=== PATIENT | male | born 1955 | race African-American/Black ===

== ENCOUNTER 2018-08-06 10:01 | Day surgery (SDC) | payer OTHER ==
[2018-08-05 10:32] VITALS: BMI 32.9
--- NOTE | 2018-08-06 08:51 | HP ---
Satellite [facility] - Chief Complaint Chief Complaint: right shoulder pain - Past Medical History Allergies/Adverse Reactions: Allergies Allergy/AdvReac Type Severity Reaction Status Date / Time peanut Allergy Verified 08/05/18 10:35 shrimp Allergy Verified 08/05/18 10:35 - Current Medications Current Medications: Home Medications Medication Instructions Recorded Amlodipine Besylate [Norvasc -] 5 mg PO DAILY 08/05/18 Aspirin [Aspirin EC] 81 mg PO DAILY 08/05/18 Cholecalciferol (Vitamin D3) 1 tab PO DAILY 08/05/18 [Vitamin D -] Rosuvastatin Calcium [Crestor] 5 mg PO DAILY 08/05/18 Turmeric [Curcumin] 1 gm MC DAILY 08/05/18 Oxycodone HCl/Acetaminophen 1 - 2 tab PO Q6H #30 tab MDD 6 08/06/18 [Percocet 5-325 mg Tablet] Satellite Physical Exam - Physical Examination General Appearance: Well Nourished, Well Developed, Alert & Oriented x3 ENT: Clear Lung: Normal air movement Heart: Regular rate & rhythm Extremities: Other (right shoulder- + ttp, dec rom, + neer, + agosto, + empty can, nvi MRI + rct) Neurological: Intact, Alert, Oriented Satellite Impression/Plan - Impression/Plan Impression: right shoulder rct Operative Procedure: right shoulder arthroscopy with LAUREN OLGUIN Date to be Performed: 08/06/18
[2018-08-06] MEDS ORDERED: ROPIVACAINE HCL 0.5% 30ML VIAL ONE (10:56)
[2018-08-06] MEDS ORDERED: MIDAZOLAM HCL 2 MG/2 ML SINGLE DOSE VIAL ONE ×2 (10:57)
[2018-08-06] MEDS ORDERED: PROPOFOL 20 ML ONE ×2 (12:06→13:17)
[2018-08-06] MEDS ORDERED: ceFAZolin SODIUM 1 GM VIAL IVPB ONE (12:22)
[2018-08-06] MEDS ORDERED: ePHEDrine SULFATE 50 MG/1 ML AMPULE ONE (12:33)
--- NOTE | 2018-08-06 13:35 | OP ---
Operative Note - Note: Operative Date: 08/06/18 ([facility]) Pre-Operative Diagnosis: right shoulder rct Operation: right shoulder arthroscopy with RCR, SAD Implants: arthrex speedbridge, 2 swivelocks Post-Operative Diagnosis: Same as Pre-op Surgeon: Ashwin Keith Lurer: Amrit Martínez Anesthesiologist/ZIPPER SLIDE ATTACHER: Lloyd Looney Anesthesia: Local, MAC Specimens Removed: shavings Estimated Blood Loss (mls): 5 Operative Report Dictated: Yes
[2018-08-06] MEDS ORDERED: ONDANSETRON 4 MG/2 ML VIAL IVPUSH PRN (14:29)
[2018-08-06] MEDS ORDERED: LACTATED RINGERS SOLUTION 1,000 ML IV SCH (14:30)
[2018-08-06 16:27] VITALS: BP 112/64; PULSE 94; TEMP 97.6
--- NOTE | 2018-08-10 16:18 | PATH ---
Surgical Pathology Report Patient Name: JINNY TURCIOS Med. Rec. #: [id number] /Age/Gender: 1955 (Age: 62) / M Account: [id number] Location: [facility] SURGICAL Taken: 08/06/2018 Received: 08/09/2018 Reported: 08/10/2018 Physicians: Ashwin Keith M.D. Specimen(s) Received RIGHT SHOULDER SHAVINGS Clinical History Right shoulder tear Final Diagnosis SHOULDER SHAVINGS, RIGHT, ARTHROSCOPY, ROTATOR CUFF REPAIR: FRAGMENTS OF BENIGN CARTILAGE, DENSE FIBROCONNECTIVE TISSUE, ADIPOSE TISSUE, AND SKELETAL MUSCLE. Electronically Signed Stefanie Raza M.D. Gross Description Received in formalin, labeled "right shoulder shavings," is a 7.0 x 5.3 x 0.3 cm. aggregate of rizzo-yellow soft tissue fragments. A wireless sales representative portion is submitted in one cassette. /08/09/2018 saudi08/09/2018
--- NOTE | 2018-08-19 10:44 | OP ---
DATE OF OPERATION: 08/06/2018 PREOPERATIVE DIAGNOSIS: Right rotator cuff tear. POSTOPERATIVE DIAGNOSIS: Right rotator cuff tear. PROCEDURE: Arthroscopy right shoulder with subacromial decompression of right rotator cuff repair. SURGICAL ATTENDING: Ashwin Keith MD SEAM PRESS OPERATOR: ESTEPHANIE Dobson ANESTHESIA: Regional and general. CLOSURE: Arthrex SpeedBridge, as well as Adjuvant SwiveLock fixation, and 3-0 nylon for skin. ESTIMATED BLOOD LOSS: Negligible. DESCRIPTION OF OPERATIVE PROCEDURE: The patient taken to the operating room on August 06, 2018. Regional and general anesthesia was administered by the anesthesiologist. IV Kefzol was administered prophylactically prior to the case. The was placed in the beach chair position with all prominences well patted. The right shoulder area was prepped and draped in the usual sterile fashion. Posterior portal was made 2 fingerbreadths below the acromion using a 15 blade followed by a blunt trocar. Exam of the glenohumeral joint revealed the following: Intact glenoid and humeral head articular cartilage, intact labrum circumferentially, intact subscapularis to its insertion, biceps tendon was intact. Looking superiorly there was a large rotator cuff tear extending from the supraspinatus into infraspinatus as well. The fluid was drained from the shoulder, and the trocar was removed. The posterior trocar was redirected in the subacromial space. The accessory lateral and anterior portal were then made using 15 blade followed by blunt trocar. A bursectomy was then performed in the subacromial space exposing the rotator cuff tear. An acromioplasty was then performed burring the bone up to the appropriate level giving sufficient clearance of the humeral head. The coracoacromial ligament was identified, and the anterior acromion was further debrided. Looking inferiorly, the rotator cuff was cleaned off exposing a large rotator cuff tear. The greater tuberosity bed was cleaned with a shaver and then burred with a bur to stimulate some bleeding bone in this region. Two medial row anchors were then placed at the articular margin, 1 anterior and 1 posterior, with preloaded FiberTape suture. They were passed through the lateral portal and then fixated to the rotator cuff by use of a Scorpion passing device fanning out the 4 limbs from anterior all the way posteriorly. Using a crisscross formation, 2 lateral anchors were applied with 1 anterior and 1 posterior limb going to the posterior anchor and 1 anterior limb and 1 posterior onto the anterior anchor and fixating it more laterally matting down the rotator cuff to the greater tuberosity. Due to the size of the tear, there was room for additional fixation both anterior and posteriorly. These were fixated again suture tape horizontal mattress sutures through independent SwiveLocks 1 anteriorly and 1 posteriorly. Post fixation, all sutures were cut snug with the bone. Range of motion revealed excellent stability of the fracture and excellent clearance in the subacromial space. The shoulder was irrigated with copious amounts of irrigation. The portals were closed with 3-0 nylon. Sterile pressure dressing followed by a shoulder immobilizer was applied. The patient awakened from anesthesia and transferred to recovery in stable condition with no complication. Oniel GRESHAM/[id number]
== END 2018-08-06 16:15 | disposition home or self-care (01) ==
LOC: JASU-SURG 10:01
PROVIDERS: ATTEND Orthopaedic Surgery
PROC: 0RNJ4ZZ Release Right Shoulder Joint, Percutaneous Endoscopic Approach (ICD-10-PCS; principal; 2018-08-06 09:00)
PROC: 0LQ14ZZ Repair Right Shoulder Tendon, Percutaneous Endoscopic Approach (ICD-10-PCS; 2018-08-06 09:00)
DX: M75.101 Unspecified rotator cuff tear or rupture of right shoulder, not specified as traumatic (principal)
CPT/HCPCS: 88304-TC; 94760

== ENCOUNTER 2019-01-05 05:09 | Day surgery (SDC) | payer OTHER ==
[2018-12-30 15:49] VITALS: BMI 34.2
[2019-01-05] MEDS ORDERED: LIDOCAINE HCL 1%, 10 MG/ML (20ML VIAL) ONE (07:36)
--- NOTE | 2019-01-05 08:12 | HP ---
Satellite [facility] [place] - Chief Complaint Chief Complaint: right hand mass History of Present Illness: right hand mass History Source: Patient Limitations to Obtaining History: No Limitations - Past Medical History Allergies/Adverse Reactions: Allergies Allergy/AdvReac Type Severity Reaction Status Date / Time No Known Drug Allergies Allergy Verified 01/05/19 07:05 peanut Allergy "rash" Verified 01/05/19 07:05 shrimp Allergy "rash" Verified 01/05/19 07:05 - Current Medications Current Medications: Home Medications Medication Instructions Recorded Amlodipine Besylate [Norvasc -] 5 mg PO DAILY 08/05/18 Cholecalciferol (Vitamin D3) 1 tab PO DAILY 08/05/18 [Vitamin D -] Rosuvastatin Calcium [Crestor] 5 mg PO HS 08/05/18 Satellite Physical Exam - Physical Examination Vital Signs: Vital Signs Period Temp Pulse Resp BP Sys/Pepe Pulse Ox Last 24 Hr 97.6 F-97.6 F 53-53 20-20 144-144/90-90 95 General Appearance: Well Nourished ENT: Clear Lung: Clear to auscultation Heart: Regular rate & rhythm Breasts: Soft Abdomen: Soft Extremities: No edema Satellite Impression/Plan - Impression/Plan Impression: right hand mass Operative Procedure: right hand mass excision Date to be Performed: 01/05/19
[2019-01-05] MEDS ORDERED: MIDAZOLAM HCL 2 MG/2 ML SINGLE DOSE VIAL ONE (08:13)
[2019-01-05] MEDS ORDERED: ceFAZolin SODIUM 1 GM VIAL ONE (08:16)
[2019-01-05] MEDS ORDERED: ceFAZolin SODIUM 1 GM VIAL IVPB ONE (08:18)
[2019-01-05] MEDS ORDERED: LIDOCAINE HCL 1%, 10 MG/ML (50 mL VIAL) IJ ONE (08:27)
[2019-01-05] MEDS ORDERED: BUPIVACAINE HCL/PF 0.5% (5 MG/ML) 30 ML VIAL IJ ONE (08:27)
--- NOTE | 2019-01-05 08:50 | OP ---
Operative Note - Note: Operative Date: 01/05/19 Pre-Operative Diagnosis: right hand mass Operation: excision mass right hand Post-Operative Diagnosis: Same as Pre-op Surgeon: Ashwin Keith Bag Grader: Kemar Solo Anesthesiologist/RIVET CATCHER: Yusef Jordan Anesthesia: Local, MAC Specimens Removed: mass, right hand Estimated Blood Loss (mls): 0 Drains, Volume Out (mls): 0 Blood Volume Replaced (mls): 0 Fluid Volume Replaced (mls): 500 Operative Report Dictated: Yes
[2019-01-05 08:55] VITALS: TEMP 98.2
--- NOTE | 2019-01-05 09:09 | OP ---
DATE OF OPERATION: 01/05/2019 PREOPERATIVE DIAGNOSIS: Mass, right hand. POSTOPERATIVE DIAGNOSIS: Mass, right hand. PROCEDURE: Excision, mass, right hand. SURGEON: Ashwin Keith MD STACKER ATTENDANT: Nestor Neri MD ANESTHESIOLOGIST: Yusef Jordan DO ANESTHESIA: MAC, local injection of 12 mL 0.5% Marcaine, 1% lidocaine mixed. DRAINS: None. COMPLICATIONS: None. SPECIMEN: Mass, right hand. BLOOD LOSS: None. BLOOD GIVEN: None. FLUID REPLACEMENT: 500 mL Plasmalyte. INDICATION: The patient is 63-year-old male with a preoperative diagnosis of a mass growing on the dorsal aspect of the right thumb. After understanding the potential risks, complications, alternatives, and benefits of surgery versus nonsurgical treatment, the patient elected to undergo this procedure. DESCRIPTION OF PROCEDURE: The patient was brought to the operating room, peripheral IV placed and IV sedation given. IV Ancef 2 g was given. The entire case was done under 3.8 loupe magnification. An elliptical incision was marked out with the marking pen. The area was injected with 10 mL 0.5% Marcaine, 1% lidocaine mix. Right upper extremity was elevated, exsanguinated with an Esmarch bandage and tourniquet inflated to 250 mmHg. An elliptical incision was made with a number 15 scalpel blade. I was then able to dissect underneath this mass. It was superficial, did not violate the deeper structures, was well encapsulated. It looked like a large skin tag, but it was about 0.75 x 0.75 cm. It did not have any large neurovascular structures going to it. It was passed off the field. The area was copiously irrigated and washed out. I then dissected small skin flaps on the radial and ulnar aspect of the elliptical incision. There was no other abnormal tissue that I could see or feel, and therefore closure was done with 4-0 undyed Vicryl in the deep dermal layer. Final skin reapproximation was done with a running subcuticular 4-0 Biosyn stitch. The area was then washed and dried, covered with Steri-Strips, 4 x 4's, Webril, and Coban. Tourniquet was taken down after a total tourniquet time of 10 minutes. There were no complications during the case. The patient tolerated the procedure quite well and was brought to the ambulatory recovery room in stable condition. NESTOR NERI M.D. [id number]
[2019-01-05 09:35] VITALS: BP 131/78; PULSE 71
--- NOTE | 2019-01-12 12:27 | PATH ---
Surgical Pathology Report Patient Name: JINNY TURCIOS Med. Rec. #: [id number] /Age/Gender: 1955 (Age: 63) / M Account: [id number] Location: [facility] SURGICAL Taken: 01/05/2019 Received: 01/05/2019 Reported: 01/12/2019 Physicians: Ashwin Keith M.D. Specimen(s) Received RIGHT THUMB MASS Clinical History Right thumb mass excision Final Diagnosis RIGHT THUMB MASS, EXCISION: SEGMENT OF SKIN WITH NEUROFIBROMA. Comment: Immunohistochemistry stains show the tumor cells are positive for CD34, KATINA (weak) and S100, while negative for AE1/AE3, Desmin, and SMA. 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 Immunohistochemistry stains were performed at [place], [place] ([id number]) and interpreted at [facility] Positive and negative controls (internal if applicable) show appropriate results. Electronically Signed Christiana Sadler M.D. Gross Description Received in formalin, labeled "right thumb mass" it's a portion of polypoid skin measuring 1.0 x 0.9 x 0.7 cm. The skin surface is smooth. The resection margin is inked blue. The specimen is entirely submitted in one cassette after bisected. MIGDALIA/01/06/2019 last/01/06/2019
== END 2019-01-05 09:40 | disposition home or self-care (01) ==
LOC: JASU-SURG 05:09
PROVIDERS: ATTEND Orthopaedic Surgery
PROC: 0JBJ0ZX Excision of Right Hand Subcutaneous Tissue and Fascia, Open Approach, Diagnostic (ICD-10-PCS; principal; 2019-01-05 08:00)
DX: D36.12 Benign neoplasm of peripheral nerves and autonomic nervous system, upper limb, including shoulder (principal)
CPT/HCPCS: 88305-TC

== ENCOUNTER 2019-01-06 16:04 | Inpatient (IN) | payer OTHER ==
--- NOTE | 2019-01-06 16:13 | PDOC ---
Rapid Medical Evaluation Chief Complaint: Shortness of Breath Time Seen by Provider: 01/06/19 16:10 Medical Evaluation: Allergies Allergy/AdvReac Type Severity Reaction Status Date / Time No Known Drug Allergies Allergy Verified 01/05/19 07:05 peanut Allergy "rash" Verified 01/05/19 07:05 shrimp Allergy "rash" Verified 01/05/19 07:05 01/06/19 16:10 63 year old male c/o shortness of breath with activity x 1 week ago. send by PCP for evaluation. Pe: patient alert ox3. PMHX; hypertension, high cholesterol. A: dyspnea on exertion P: labs ekg chest xray patient to the ER for further management of care. Discharge Disposition - Diagnosis Dyspnea on exertion - Referrals - Patient Instructions - Post Discharge Activity
--- NOTE | 2019-01-06 16:24 | PDOC ---
History of Present Illness - General Chief Complaint: Shortness of Breath Stated Complaint: SENT BY PCP/SOB Time Seen by Provider: 01/06/19 16:10 Past History - Past Medical History Allergies/Adverse Reactions: Allergies Allergy/AdvReac Type Severity Reaction Status Date / Time No Known Drug Allergies Allergy Verified 01/06/19 16:12 peanut Allergy "rash" Verified 01/06/19 16:12 shrimp Allergy "rash" Verified 01/06/19 16:12 Home Medications: Ambulatory Orders Amlodipine Besylate [Norvasc -] 5 mg PO DAILY 08/05/18 Rosuvastatin Calcium [Crestor] 5 mg PO HS 08/05/18 Aspirin [Children's Aspirin] 81 mg PO DAILY 01/06/19 Ketoconazole 2% Cream [Nizoral 2% Cream -] 1 applic TP DAILY 01/06/19 Losartan Potassium [Cozaar -] 50 mg PO DAILY 01/06/19 Cancer: Yes (prostate) COPD: No HTN: Yes Hypercholesterolemia: Yes - Surgical History Orthopedic Surgery: Yes (right shoulder) - Immunization History Immunization Up to Date: Yes - Suicide/Smoking/Psychosocial Hx Smoking History: Never smoked Have you smoked in the past 12 months: No If you are a former smoker, when did you quit?: 2011 Information on smoking cessation initiated: No Hx Alcohol Use: No Drug/Substance Use Hx: No *Physical Exam - Vital Signs Last Vital Signs Temp Pulse Resp BP Pulse Ox 98.1 F 69 17 145/94 95 01/06/19 16:12 01/06/19 16:12 01/06/19 16:12 01/06/19 16:12 01/06/19 16:12 ED Treatment Course - LABORATORY CBC & Chemistry Diagram: 01/06/19 16:24 01/06/19 16:24 Medical Decision Making - Medical Decision Making 63yo M with PMH of HTN, HLD, prostate CA (surgery in 2012 and radiation in 2014 ) sent by his primary care team for evaluation of abnormal EKG and exertional shorthess of breath. Per primary team, patient with EKG changes today: new PACs and twi inversion on lead III. Patient states he is an active person and it is unusual that he will become short of breath upon walking through a parking lot and up some stairs. Denies history of asthma. Primary team states he has PFTs consistent with an early stage of COPD. Patient reports intermittent smoking. Denies chest pain. Does not have a mate chief but had a stress test about three or four months ago which was "fine." Denies hemoptysis, no recent surgical history, no recent immobilization, no hormone use, no history of DVT or PE. No fevers, chills, or abdominal pain. PCP: Dr. Carrington ROS: Constitutional: no fever, no chills HEENT: no throat pain, no dysphagia Cardiovascular: no chest pain, no palpitations Respiratory: no cough, +shortness of breath Gastrointestinal: no abdominal pain, no nausea Genitourinary: no dysuria, no hematuria Musculoskeletal: no myalgia, no arthralgia Skin: no rash, no itching Neurologic: no headache, no weakness PE: General: Awake, alert, and fully oriented, in no acute distress Head: No signs of trauma Eyes: EOMI, sclera anicteric ENT: Moist mucus membranes Neck: Normal ROM, supple Lungs: Lungs clear, Normal breath sounds Cardio: Regular rhythm, S1 and S2 present Abdomen: Soft, nontender. No guarding, no rebound, no masses Extremities: Normal range of motion, Distal pulses present, No BLE edema, No calf tenderness SKIN: Warm, Dry, normal turgor Neurologic: Cranial nerves II through XII grossly intact. Normal speech ED Courses/MDM: DDX including but not limited to ACS, PE, PNA, anemia, metabolic derangement Labs, EKG, CXR EKG: rate 79, QTc 474, twi from lead III not present, but new twi seen on anterior leads 01/06/19 16:24 CBC WBC 4.9 K/mm3 (4.0-10.0) 01/06/19 16:24 RBC 5.08 M/mm3 (4.00-5.60) 01/06/19 16:24 Hgb 16.0 GM/dL (11.7-16.9) 01/06/19 16:24 Hct 48.7 % (35.4-49) 01/06/19 16:24 MCV 95.9 fl (80-96) 01/06/19 16:24 MCH 31.6 pg (25.7-33.7) 01/06/19 16:24 MCHC 32.9 g/dl (32.0-35.9) 01/06/19 16:24 RDW 13.0 % (11.9-15.9) 01/06/19 16:24 Plt Count 184 K/MM3 (134-434) 01/06/19 16:24 MPV 9.1 fl (7.5-11.1) 01/06/19 16:24 Absolute Neuts (auto) 3.2 K/mm3 (1.5-8.0) 01/06/19 16:24 Neutrophils % 65.5 % (42.8-82.8) D 01/06/19 16:24 Lymphocytes % 22.2 % (8-40) D 01/06/19 16:24 Monocytes % 9.4 % (3.8-10.2) 01/06/19 16:24 Eosinophils % 1.8 % (0-4.5) 01/06/19 16:24 Basophils % 1.1 % (0-2.0) 01/06/19 16:24 Nucleated RBC % 0 % (0-0) 01/06/19 16:24 No leukocytosis CMP Sodium 142 mmol/L (136-145) 01/06/19 16:24 Potassium 4.0 mmol/L (3.5-5.1) 01/06/19 16:24 Chloride 110 mmol/L (98-107) H 01/06/19 16:24 Carbon Dioxide 26 mmol/L (21-32) 01/06/19 16:24 Anion Gap 6 MMOL/L (8-16) L 01/06/19 16:24 BUN 15.3 mg/dL (7-18) 01/06/19 16:24 Creatinine 1.1 mg/dL (0.55-1.3) 01/06/19 16:24 Est GFR (CKD-EPI)AfAm 81.22 01/06/19 16:24 Est GFR (CKD-EPI)NonAf 70.07 01/06/19 16:24 Random Glucose 87 mg/dL (74-106) 01/06/19 16:24 Calcium 9.1 mg/dL (8.5-10.1) 01/06/19 16:24 Magnesium 2.3 mg/dL (1.8-2.4) 01/06/19 16:24 Total Bilirubin 0.5 mg/dL (0.2-1) 01/06/19 16:24 AST 20 U/L (15-37) 01/06/19 16:24 ALT 26 U/L (13-61) 01/06/19 16:24 Alkaline Phosphatase 102 U/L (45-117) 01/06/19 16:24 Creatine Kinase 114 U/L (26-308) 01/06/19 16:24 Troponin I 0.02 ng/ml (0.00-0.05) 01/06/19 16:24 B-Natriuretic Peptide 71.4 pg/ml (5-125) 01/06/19 16:24 Total Protein 7.5 g/dl (6.4-8.2) 01/06/19 16:24 Albumin 3.6 g/dl (3.4-5.0) 01/06/19 16:24 Electrolytes unremarkable Tpn undetectable Normal BNP ASA ordered Trial of albuterol CXR without acute pathology, per radiology report: "2 views of the chest reveal clear lungs, normal, normal drake and some unfolding of the aorta. Angles are sharp angles. Soft tissues are intact. There is evidence of previous right shoulder surgery. Impression: No acute chest pathology. " Recommended admission, however patient declined. He is of sound mind and able to verbalize benefits and risks of admission. He wants to be discharged home after second troponin in order to attend a celebration of his jail at work tomorrow. 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 George and night team. 01/06/19 19:09 *DC/Admit/Observation/Transfer Diagnosis at time of Disposition: Dyspnea on exertion - Discharge Dispostion Condition at time of disposition: Stable Decision to Admit order: Yes - Referrals - Patient Instructions - Post Discharge Activity
[2019-01-06 16:36] LABS: BASO % 1.1 % (0-2.0); EOS % 1.8 % (0-4.5); HEMATOCRIT 48.7 % (35.4-49); LYMPH % 22.2 % (8-40); MCH 31.6 pg (25.7-33.7); MCHC 32.9 g/dl (32.0-35.9); MEAN CELL VOLUME 95.9 fl (80-96); MEAN PLT VOLUME 9.1 fl (7.5-11.1); MONO % 9.4 % (3.8-10.2); NEUT % 65.5 % (42.8-82.8); PLATELET COUNT 184 K/MM3 (134-434); RBC 5.08 M/mm3 (4.00-5.60); WHITE BLOOD COUNT 4.9 K/mm3 (4.0-10.0)
[2019-01-06 16:57] LABS: INR 0.98 (0.83-1.09); PROTHROMBIN TIME (PATIENT) 11.6 SEC (9.7-13.0)
[2019-01-06 17:13] LABS: ALBUMIN 3.6 g/dl (3.4-5.0); BILIRUBIN,TOTAL 0.5 mg/dL (0.2-1); BLOOD UREA NITROGEN 15.3 mg/dL (7-18); CALCIUM 9.1 mg/dL (8.5-10.1); CREATININE 1.1 mg/dL (0.55-1.3); MAGNESIUM 2.3 mg/dL (1.8-2.4); TOT PROT 7.5 g/dl (6.4-8.2)
[2019-01-06 17:46] LABS: N-TERMINAL BNP 71.4 pg/ml (5-125)
[2019-01-06] MEDS ORDERED: ASPIRIN 325 MG TABLET PO ONE (18:18)
--- NOTE | 2019-01-06 18:18 | PDOC ---
Documentation entered by Fartun Bermudez SCRIBE, acting as scribe for Tianna Betancur DO. Tianna Betancur DO: This documentation has been prepared by the Aidan richey Brenda, SCRIBE, under my direction and personally reviewed by me in its entirety. I confirm that the documentation accurately reflects all work, treatment, procedures, and medical decision making performed by me. Attending Attestation - Resident Resident Name: Lis Sesay (\) - ED Attending Attestation I have performed the following: I have examined & evaluated the patient, The case was reviewed & discussed with the resident, I agree w/resident's findings & plan, Exceptions are as noted - HPI HPI: 01/06/19 19:40 The patient is a year old female, with a significant PMH of HTN, HLD, prostate CA (surgery in 2012 and radiation in 2014) who presents to the emergency department, sent in by his PCP for evaluation of an irregular EKG and shortness of breath upon exertion. As per patient, he is regularly an active person, and he would not normally be short of breath upon exertion, such as walking up the steps. Patient notes having a stress test done recently, and it was normal. The patient denies chest pain, headache and dizziness.Denies fever, chills, nausea, vomiting, diarrhea and constipation. Denies dysuria, frequency, urgency and hematuria. Allergies: NKA Past surgical history: ganglion cyst removed, surgery for prostate cancer Social history: IOccasional and social tobacco use. States he has 1 cigarette every couple of months. PCP: Zeb Singh rn wound care - Physicial Exam PE: 01/06/19 19:40 GENERAL: Awake, alert, and fully oriented, in no acute distress HEAD: No signs of trauma EYES: sclera anicteric, conjunctiva clear NECK: Normal ROM, supple, no lymphadenopathy, JVD, or masses LUNGS: Breath sounds equal, clear to auscultation bilaterally. No wheezes, and no crackles HEART: Regular rate and rhythm, normal S1 and S2, no murmurs, rubs or gallops ABDOMEN: Soft, nontender, normoactive bowel sounds. No guarding, no rebound. No masses EXTREMITIES: Normal range of motion, no edema. No clubbing or cyanosis. No cords, erythema, or tenderness NEUROLOGICAL: Cranial nerves II through XII grossly intact. Normal speech. SKIN: Warm, Dry, normal turgor, no rashes or lesions noted. - Medical Decision Making 01/06/19 18:15 I, Dr. Tianna Betancur, DO, attest that this document has been prepared under my direction and personally reviewed by me in its entirety. I further attest, that it accurately reflects all work, treatment, procedures and medical decision -making performed by me. a/p: 63yo male with hx of htn, hld, and early dx of copd with a smoking hx with increasing sob x 1 week -denies cp -no cough -no f/c -no palpitations -no abd pain, no n/v/d -no pleuritic component -seen by Jeferson Davey today - repeat pft repeated, ekg - ekg showed a t wave inversion inferiorly which is new and t wave inversions septally which are new from prior - sent in for further eval -pt states sob when walking up stairs and exerting himself -no leg swelling, no calf cramping -no PE risk factors -concern for acs vs copd as cause of sob -will send labs, ekg, cxr, asa 01/06/19 18:17 concern for ekg changes trop neg bnp neg will repeat trop pt retiring tomorrow from [facility] - states his alf green party is tomorrow morning will continue to monitor call placed to Jeferson Davey to update her 01/06/19 19:18 pt willing to stay for further eval feels better after neb 01/06/19 19:52 cxr clear resident discussed the case with symphony covering dr. charles who accepts pt to service Heart Score/ECG Review - ECG Intrepretation Comment:: 01/06/19 18:19 sinus at 79, nl axis, nl interval, no acute st changes, t wave inversions septally
[2019-01-06] MEDS ORDERED: ALBUTEROL SO4 0.083% IH SOL 2.5 MG/3 ML VIAL.NEB. NEB ONE ×2 (18:21→18:24)
[2019-01-06] MEDS ORDERED: ASPIRIN 81 MG CHEWABLE TABLETS ONE (18:24)
--- NOTE | 2019-01-06 19:28 | PDOC ---
*Physical Exam - Vital Signs Last Vital Signs Temp Pulse Resp BP Pulse Ox 98.1 F 69 17 145/94 95 01/06/19 16:12 01/06/19 16:12 01/06/19 16:12 01/06/19 16:12 01/06/19 16:12 ED Treatment Course - LABORATORY CBC & Chemistry Diagram: 01/06/19 16:24 01/06/19 16:24 - ADDITIONAL ORDERS Additional order review: Laboratory Results 01/06/19 01/06/19 16:24 16:24 PT with INR 11.60 INR 0.98 Sodium 142 Potassium 4.0 Chloride 110 H Carbon Dioxide 26 Anion Gap 6 L BUN 15.3 Creatinine 1.1 Est GFR (CKD-EPI)AfAm 81.22 Est GFR (CKD-EPI)NonAf 70.07 Random Glucose 87 Calcium 9.1 Magnesium 2.3 Total Bilirubin 0.5 AST 20 ALT 26 Alkaline Phosphatase 102 Creatine Kinase 114 Troponin I 0.02 B-Natriuretic Peptide 71.4 Total Protein 7.5 Albumin 3.6 01/06/19 16:24 RBC 5.08 MCV 95.9 MCHC 32.9 RDW 13.0 MPV 9.1 Neutrophils % 65.5 D Lymphocytes % 22.2 D Monocytes % 9.4 Eosinophils % 1.8 Basophils % 1.1 - Medications Given in the ED: ED Medications Discontinued Medications Generic Name Dose Route Start Last Admin Trade Name Freq PRN Reason Stop Dose Admin Albuterol Sulfate 1 amp 01/06/19 18:21 01/06/19 18:28 Ventolin 0.083% Nebulizer Soln - NEB 01/06/19 18:22 1 amp ONCE ONE Administration Aspirin 325 mg 01/06/19 18:18 01/06/19 18:28 Asa - PO 01/06/19 18:19 325 mg ONCE ONE Administration Medical Decision Making - Medical Decision Making Pt was signed out to me by resident Dr. Sesay, who explained the presentation, ED course, any pending results, and needed interventions. Pending results include admission. Pt is currently stable and is lying comfortably. Trop negative, chest x-ray with no acute pathology. Plan to admit for tele obs. Pending call back from admitting team. 01/06/19 19:24 Pt admitted to hospitalist team (Dr. Mack), covering for Dr. Carrington. 01/06/19 19:55 *DC/Admit/Observation/Transfer Diagnosis at time of Disposition: Dyspnea on exertion - Discharge Dispostion Condition at time of disposition: Stable Decision to Admit order: Yes - Referrals Referrals: Jamshid Strauss MD [Staff Physician] - Yves Carrington MD [Primary Care Provider] - - Patient Instructions - Post Discharge Activity
--- NOTE | 2019-01-06 20:14 | PN ---
Teaching Attending Note Name of Resident: Payton Horan ATTENDING PHYSICIAN STATEMENT I saw and evaluated the patient. I reviewed the resident's note and discussed the case with the resident. I agree with the resident's findings and plan as documented. SUBJECTIVE: Patient is 63 year old man with PMH of HTN, HLD, prostate CA (surgery in 2013 and radiation in 2015), Recent shoulder surgery, Tobacco use and Recent right hand cyst removal sent by his primary care team for evaluation of abnormal EKG and exertional shorthess of breath. Per primary team, patient with EKG changes today: new PACs and T wave inversion in lead III. Patient states he is an active person and it is unusual that he will become short of breath upon walking through a parking lot and up some stairs. He recently stopped taking daily Aspirin after he had shoulder surgery. Denies history of asthma. Primary team states he has PFTs consistent with early stage of COPD (Mild restrictive lung disease). Patient reports intermittent smoking. Denies chest pain. Does not have a barrel cleaner but had a stress test about three or four months ago which was "fine." Denies hemoptysis, no recent immobilization, no hormone use, no history of DVT or PE. No fevers, chills, or abdominal pain. OBJECTIVE: Alert Vital Signs Period Temp Pulse Resp BP Sys/Pepe Pulse Ox Last 24 Hr 98.1 F 69-82 17-20 145-145/83-94 95-96 HEENT: No Jaundice, eye redness or discharge, PERRLA, EOMI. Normocephalic, atraumatic. External ears are normal and hearing is grossly intact. No nasal discharge. Neck: Supple, nontender. No palpable adenopathy or thyromegaly. No JVD Chest: Good effort. Clear to auscultation and percussion. Heart: Regular. No S3, rub or murmur Abdomen: Not distended, soft, nontender and no HSM. No rebound or guarding. Normal bowel sounds. Ext: Peripheral pulses intact. No leg edema. Skin: Warm and dry. No petechiae, rash or ecchymosis. Neuro: Alert. Oriented x3. CN 2-12 grossly intact. Sensation grossly intact in all four extremities and DTR are symmetric. Psych: Appropriate mood and affect. Good insight. Current Medications Generic Name Dose Route Start Last Admin Trade Name Freq PRN Reason Stop Dose Admin Amlodipine Besylate 5 mg 01/07/19 10:00 Norvasc - PO DAILY [facility] Aspirin 81 mg 01/07/19 10:00 Asa - PO DAILY [facility] Enoxaparin Sodium 40 mg 01/07/19 10:00 Lovenox - SQ DAILY [facility] Losartan Potassium 50 mg 01/07/19 10:00 Cozaar - PO DAILY [facility] Rosuvastatin Calcium 5 mg 01/06/19 22:00 Crestor - PO HS [facility] Home Medications Medication Instructions Recorded Amlodipine Besylate [Norvasc -] 5 mg PO DAILY 08/05/18 Rosuvastatin Calcium [Crestor] 5 mg PO HS 08/05/18 Aspirin [Children's Aspirin] 81 mg PO DAILY 01/06/19 Ketoconazole 2% Cream [Nizoral 2% 1 applic TP DAILY 01/06/19 Cream -] Losartan Potassium [Cozaar -] 50 mg PO DAILY 01/06/19 Abnormal Lab Results 01/06/19 16:24 Chloride 110 H Anion Gap 6 L ASSESSMENT AND PLAN: 1. New onset COPD - Presentation consistent with COPD. [place] better after bronchodilator. Repeat EKG shows NSR with new T wave inversion in V1 and V2, but no longer inverted in Lead III. Initial troponin is negative. No acute abnormality on CXR. Will admit to telemetry to rule out ACS, get ECHO, fasting lipids, TSH and consult cardiology. Will get CTA chest to rule out PE. Continue Duoneb PRN and consult Pulmonary. 2. Tobacco Use Counseled on risks associated with tobacco use. We will provide patient all the necessary assistance to facilitate smoking cessation and prescribe Nicotine patch. 3. Obesity Counseled on the risks associated with obesity. Will provide patient all the necessary assistance, counseling and positive reinforcement to facilitate weight loss. Consult wreath maker. 4. Hypertension - Restart suitable outpatient antihypertensive drugs when clinically appropriate. Revise regimen to ensure [id number] excellent BP control and day camp counselor patient on the injurious effects of uncontrolled hypertension. Nonpharmacologic measures to control hypertension like weight loss , salt restriction and exercise discussed. Importance of adherence to treatment regimen and attainment of normotension emphasized. 5. DVT prophylaxis - Lovenox 40 mg SQ q 24 hours. 6. Advance directives - Full code
--- NOTE | 2019-01-06 21:12 | HP ---
CHIEF COMPLAINT:SOB on exertion PCP:Dr. Carrington HISTORY OF PRESENT ILLNESS: Patient is a 63 year old male with past medical history of HTN, HLD, and prostate CA, presented to the ED from his PCP's office today after an EKG finding of TWI III and worsening SOB on exertion for about 1 week. Patient reported he started noticing gradual onset of shortness of breath when walking up the stairs. He notes walking up 1 flight makes him dyspneic. This morning, due to persistence of dyspnea on exertion, patient went to his PCP's office. An EKG was done which TWI on III which was not seen on previous EKGs. Of note, patient reported that he used to have an active lifestyle, and exercises regularly with a bicycle. But since he had a shoulder surgery in September, he has not been as active. Patient also had a cyst excision of the right hand yesterday , for which he has not been taking his aspirin. Patient denies any fever, chills , headache, dizziness, chest pain, palpitations, abdominal pain, diarrhea, urinary symptoms. ER course was notable for: (1)ASA 162mg (2) (3) Recent Travel:denies PAST MEDICAL HISTORY: HTN HLD prostate CA PAST SURGICAL HISTORY: rotator cuff surgery, right cyst excision on the right hand prostatectomy Social History: Smokin cigarette every 3 months Alcohol:occasional Drugs: denies Family History: Father - HTN Mother - DM, stroke Allergies No Known Drug Allergies Allergy (Verified 01/06/19 16:12) peanut Allergy (Verified 01/06/19 16:12) "rash" shrimp Allergy (Verified 01/06/19 16:12) "rash" HOME MEDICATIONS: Home Medications Medication Instructions Recorded Amlodipine Besylate [Norvasc -] 5 mg PO DAILY 08/05/18 Rosuvastatin Calcium [Crestor] 5 mg PO HS 08/05/18 Aspirin [Children's Aspirin] 81 mg PO DAILY 01/06/19 Ketoconazole 2% Cream [Nizoral 2% 1 applic TP DAILY 01/06/19 Cream -] Losartan Potassium [Cozaar -] 50 mg PO DAILY 01/06/19 REVIEW OF SYSTEMS CONSTITUTIONAL: Absent: fever, chills, diaphoresis, generalized weakness, malaise, loss of appetite, weight change HEENT: Absent: rhinorrhea, nasal congestion, throat pain, throat swelling, difficulty swallowing, mouth swelling, ear pain, eye pain, visual changes CARDIOVASCULAR: Absent: chest pain, syncope, palpitations, irregular heart rate, lightheadedness , peripheral edema RESPIRATORY: dyspnea with exertion Absent: cough, shortness of breath,orthopnea, wheezing, stridor, hemoptysis GASTROINTESTINAL: Absent: abdominal pain, abdominal distension, nausea, vomiting, diarrhea, constipation, melena, hematochezia GENITOURINARY: Absent: dysuria, frequency, urgency, hesitancy, hematuria, flank pain, genital pain MUSCULOSKELETAL: Absent: myalgia, arthralgia, joint swelling, back pain, neck pain SKIN: Absent: rash, itching, pallor HEMATOLOGIC/IMMUNOLOGIC: Absent: easy bleeding, easy bruising, lymphadenopathy, frequent infections ENDOCRINE: Absent: unexplained weight gain, unexplained weight loss, heat intolerance, cold intolerance NEUROLOGIC: Absent: headache, focal weakness or paresthesias, dizziness, unsteady gait, seizure, mental status changes, bladder or bowel incontinence PSYCHIATRIC: Absent: anxiety, depression, suicidal or homicidal ideation, hallucinations. PHYSICAL EXAMINATION Vital Signs - 24 hr 01/06/19 01/06/19 16:12 20:54 Temperature 98.1 F Pulse Rate 69 Pulse Rate [ 82 Apical] Respiratory 17 20 Rate Blood Pressure 145/94 Blood Pressure 145/83 [Right Arm] O2 Sat by Pulse 95 96 Oximetry (%) GENERAL: Awake, alert, and fully oriented, in no acute distress. HEAD: Normal with no signs of trauma. EYES: PERRLA, EOMI, sclera anicteric, conjunctiva clear. EARS, NOSE, THROAT: Moist mucous membranes. NECK: Normal range of motion, supple. LUNGS: Breath sounds equal, clear to auscultation bilaterally. HEART: Regular rate and rhythm, normal S1 and S2 without murmur, rub or gallop. ABDOMEN: Soft, nontender, not distended, normoactive bowel sounds. MUSCULOSKELETAL: Normal range of motion at all joints. UPPER EXTREMITIES: 2+ pulses, warm, well-perfused. No peripheral edema. LOWER EXTREMITIES: 2+ pulses, warm, well-perfused. No peripheral edema. NEUROLOGICAL: Cranial nerves II-XII intact. Normal speech. Normal gait. PSYCHIATRIC: Cooperative. Good eye contact. Appropriate mood and affect. SKIN: Warm, dry, normal turgor, no rashes or lesions noted. Laboratory Results - last 24 hr 01/06/19 01/06/19 01/06/19 16:24 16:24 16:24 WBC 4.9 RBC 5.08 Hgb 16.0 Hct 48.7 MCV 95.9 MCH 31.6 MCHC 32.9 RDW 13.0 Plt Count 184 MPV 9.1 Absolute Neuts (auto) 3.2 Neutrophils % 65.5 D Lymphocytes % 22.2 D Monocytes % 9.4 Eosinophils % 1.8 Basophils % 1.1 Nucleated RBC % 0 PT with INR 11.60 INR 0.98 Sodium 142 Potassium 4.0 Chloride 110 H Carbon Dioxide 26 Anion Gap 6 L BUN 15.3 Creatinine 1.1 Est GFR (CKD-EPI)AfAm 81.22 Est GFR (CKD-EPI)NonAf 70.07 Random Glucose 87 Calcium 9.1 Magnesium 2.3 Total Bilirubin 0.5 AST 20 ALT 26 Alkaline Phosphatase 102 Creatine Kinase 114 Troponin I 0.02 B-Natriuretic Peptide 71.4 Total Protein 7.5 Albumin 3.6 ASSESSMENT/PLAN: Patient is a 63 year old male with past medical history of HTN, HLD, and prostate CA, presented to the ED from his PCP's office today after an EKG finding of TWI III and worsening SOB on exertion for about 1 week. #SOB likely 2/2 Acute pulmonary embolism -CTAP: acute central pulmonary embolism with probable right heart strain -will start AC with Lovenox 110mg bid #TWI III on ekg/ rule out ACS -Repeat EKG done at the ED showed NSR with new T wave inversion on V1 and V2, lead III no longer inverted -Trop x1 negative, will trend, with repeat ekg -Echo -fasting lipids, TSH -Cardiology consulted. #New onset COPD -Recently had PFTs done as outpatient, consistent with COPD -Received albuterol neb at the ED and reported improvement of symptoms. -will order duonebs PRN #HTN -Continue Amlodipine 5mg daily -Losartan 50mg daily #HLD -continue Crestor 5mg #FEN -Not on any standing fluids -Electrolytes wnl, routine bmp monitoring -Sodium controlled diet #Prophylaxis -Lovenox 110mg sq BID #Disposition -full code -tele Visit type - Emergency Visit Emergency Visit: Yes ED Registration Date: 01/07/19 Care time: The patient presented to the Emergency Department on the above date and was hospitalized for further evaluation of their emergent condition. - New Patient This patient is new to me today: Yes Date on this admission: 01/06/19 - Critical Care Critical Care patient: No ATTENDING PHYSICIAN STATEMENT I saw and evaluated the patient. I reviewed the resident's note and discussed the case with the resident. I agree with the resident's findings and plan as documented. SUBJECTIVE: OBJECTIVE: ASSESSMENT AND PLAN:
[2019-01-06 21:31] LABS: N-TERMINAL BNP 62.3 pg/ml (5-125)
[2019-01-06] MEDS ORDERED: ROSUVASTATIN CA 5 MG TABLET (FP) PO SCH (22:00)
[2019-01-06] MEDS ORDERED: ENOXAPARIN NA (PORCINE) 120 MG/0.8 ML DISP.SYRIN SQ SCH (22:30)
[2019-01-06] MEDS ORDERED: ALBUTEROL SO4 2.5/IPRATROPIUM 0.5 INH SOL 3 ML VIAL.NEB. NEB PRN (22:45)
[2019-01-06] MEDS ORDERED: ENOXAPARIN NA (PORCINE) 80 MG/0.8 ML DISP.SYRIN SQ ONE (23:10)
[2019-01-06] MEDS ORDERED: ENOXAPARIN NA (PORCINE) 30 MG/0.3 ML DISP.SYRIN SQ ONE (23:10)
[2019-01-06] MEDS: ENOXAPARIN 30 MG, ENOXAPARIN 80 MG SQ SCH (23:17)
[2019-01-06 23:51] VITALS: BMI 34.6
[2019-01-07 08:09] LABS: BASO % 0.6 % (0-2.0); EOS % 2.5 % (0-4.5); HEMATOCRIT 45.2 % (35.4-49); HEMOGLOBIN 15.1 GM/dL (11.7-16.9); LYMPH % 29.3 % (8-40); MCHC 33.4 g/dl (32.0-35.9); MEAN CELL VOLUME 95.9 fl (80-96); MEAN PLT VOLUME 8.9 fl (7.5-11.1); MONO % 11.6 % (3.8-10.2); PLATELET COUNT 169 K/MM3 (134-434); RBC 4.71 M/mm3 (4.00-5.60); RDW 12.8 % (11.9-15.9); WHITE BLOOD COUNT 3.5 K/mm3 (4.0-10.0)
[2019-01-07] MEDS ORDERED: ENOXAPARIN NA (PORCINE) 80 MG/0.8 ML DISP.SYRIN SQ ONE ×2 (08:13→21:47)
[2019-01-07] MEDS ORDERED: ENOXAPARIN NA (PORCINE) 30 MG/0.3 ML DISP.SYRIN SQ ONE ×2 (08:13→21:47)
[2019-01-07 08:37] LABS: ANION GAP 6 MMOL/L (8-16); BLOOD UREA NITROGEN 16.2 mg/dL (7-18); CALCIUM 8.8 mg/dL (8.5-10.1); CHLORIDE 106 mmol/L (98-107); CO2 28 mmol/L (21-32); GLUCOSE,RANDOM 89 mg/dL (74-106); MAGNESIUM 2.3 mg/dL (1.8-2.4); PHOSPHOROUS 3.9 mg/dL (2.5-4.9); POTASSIUM 3.8 mmol/L (3.5-5.1); SODIUM 141 mmol/L (136-145)
[2019-01-07] MEDS: LOSARTAN POTASSIUM 50 MG TABLET (FP) PO SCH (09:38)
[2019-01-07] MEDS: ENOXAPARIN 30 MG, ENOXAPARIN 80 MG SQ SCH ×2 (09:38→21:52)
[2019-01-07] MEDS: ASPIRIN 81 MG CHEWABLE TABLETS PO SCH (09:38)
[2019-01-07] MEDS: amLODIPine BESYLATE 5 MG TABLET (FP) PO SCH (09:38)
[2019-01-07] MEDS ORDERED: ENOXAPARIN NA (PORCINE) 40 MG/0.4 ML DISP.SYRIN SQ SCH (10:00)
--- NOTE | 2019-01-07 10:43 | ECHO ---
Name: TURCIOS, JINNY Exam:Adult Echocardiogram Study Date: 01/07/2019 08:09 AM Age: 63 yrs Reason For Study: SOB on exertion Height: 71 in Weight: 247 lb BSA: 2.3 m2 MMode/2D Measurements & Calculations IVSd: 1.2 cm ACS: 1.8 cm LVIDd: 4.2 cm LVIDs: 3.0 cm LVPWd: 1.0 cm EDV(Teich): 79.8 ml LVOT diam: 1.7 cm ESV(Teich): 35.3 ml RV S Jean-Paul: 16.6 cm/sec Doppler Measurements & Calculations MV E max jean-paul: 105.0 cm/sec MV A max jean-paul: 113.2 cm/sec MV dec slope: 324.6 cm/sec2 MV E/A: 0.93 Ao V2 max: 188.9 cm/sec LV V1 max P.5 mmHg Ao max P.3 mmHg LV V1 mean P.3 mmHg Ao V2 mean: 137.2 cm/sec LV V1 max: 127.1 cm/sec Ao mean P.5 mmHg LV V1 mean: 84.3 cm/sec Ao V2 VTI: 41.1 cm LV V1 VTI: 25.8 cm MIKHAIL(I,D): 1.4 cm2 MIKHAIL(V,D): 1.5 cm2 SV(LVOT): 55.9 ml TR max jean-paul: 202.2 cm/sec TR max P.4 mmHg Med Peak E' Jean-Paul: 12.3 cm/sec Med E/e': 8.6 Lat Peak E' Jean-Paul: 13.1 cm/sec Lat E/e': 8.0 Procedure The study was technically limited with all images being suboptimal in quality. Left Ventricle Left ventricular systolic function is grossly normal. Ejection Fraction = 55-60%. The transmitral spe ctral Doppler flow pattern is suggestive of impaired LV relaxation. Regional wall motion abnormalities rose ot be excluded due to limited visualization. Right Ventricle The right ventricle is grossly normal size. The right ventricular systolic function is grossly normal . Atria Normal left and right atrial size and function. Mitral Valve There is mild mitral valve thickening. There is no mitral valve stenosis. Tricuspid Valve The tricuspid valve is normal in structure and function. There is mild tricuspid regurgitation. There was insufficient TR detected to calculate RV systolic pressure. Aortic Valve There is mild aortic sclerosis.;. No hemodynamically significant valvular aortic stenosis. No aortic regurgitation is present. Pulmonic Valve The pulmonic valve is not well seen, but is grossly normal. There is no pulmonic valvular stenosis. Great Vessels The aortic root is normal size. Pericardium/Pleura There is no pericardial effusion. Interpretation Summary The study was technically limited with all images being suboptimal in quality. Regional wall motion abnormalities cannot be excluded due to limited visualization. Left ventricular systolic function is grossly normal. Ejection Fraction = 55-60%. The transmitral spectral Doppler flow pattern is suggestive of impaired LV relaxation. There is mild mitral valve thickening. There is mild tricuspid regurgitation. There is mild aortic sclerosis.; There is no pericardial effusion. MD Queen *Frandy 01/07/2019 10:42 AM
--- NOTE | 2019-01-07 10:44 | CON.CARD ---
Consult Consult Specialty:: cardiology Reason for Consultation:: SOB - History of Present Illness History of Present Illness: 63 year old male with HTN, HLD, and prostate CA, presented to the ED from his PCP's office for management of new dyspnea and abnormal ECG. THere is occasional Lt shoulder pain with ambulation. EKG finding of TWI III. A CT chest is positive for multilobar PE with bilateral upper and lower lobe PE and distal RT main Pulm Art PE. Echocardiogram is techinically limited. LV and RV function and size are reportedly normal. - History Source History Provided By: Patient Limitations to Obtaining History: No Limitations - Alcohol/Substance Use Hx Alcohol Use: No - Smoking History Smoking history: Never smoked Have you smoked in the past 12 months: No If you are a former smoker, when did you quit?: 2011 Home Medications - Allergies Allergies/Adverse Reactions: Allergies Allergy/AdvReac Type Severity Reaction Status Date / Time No Known Drug Allergies Allergy Verified 01/06/19 16:12 peanut Allergy "rash" Verified 01/06/19 16:12 shrimp Allergy "rash" Verified 01/06/19 16:12 - Home Medications Home Medications: Ambulatory Orders Amlodipine Besylate [Norvasc -] 5 mg PO DAILY 08/05/18 Rosuvastatin Calcium [Crestor] 5 mg PO HS 08/05/18 Aspirin [Children's Aspirin] 81 mg PO DAILY 01/06/19 Ketoconazole 2% Cream [Nizoral 2% Cream -] 1 applic TP DAILY 01/06/19 Losartan Potassium [Cozaar -] 50 mg PO DAILY 01/06/19 Review of Systems - Review of Systems Constitutional: reports: No Symptoms Eyes: reports: No Symptoms HENT: reports: No Symptoms Neck: reports: No Symptoms Cardiovascular: reports: Chest Pain, Shortness of Breath Respiratory: reports: SOB, SOB on Exertion Gastrointestinal: reports: No Symptoms Vital Signs: Vital Signs Temperature 97.8 F 01/07/19 07:45 Pulse Rate 62 01/07/19 07:45 Respiratory Rate 18 01/07/19 07:45 Blood Pressure 132/91 01/07/19 07:45 O2 Sat by Pulse Oximetry (%) 98 01/07/19 07:45 Constitutional: Yes: Well Nourished, No Distress, Calm Eyes: Yes: Conjunctiva Clear, EOM Intact HENT: Yes: Atraumatic, Normocephalic Neck: Yes: Supple, Trachea Midline Respiratory: Yes: Regular, CTA Bilaterally Gastrointestinal: Yes: Normal Bowel Sounds, Soft Cardiovascular: Yes: Regular Rate and Rhythm JVD: No Carotid Bruit: No PMI: Non-Displaced Heart Sounds: Yes: S1, S2 Murmur: No: Systolic Murmur, Diastolic Murmur Edema: No - Other Data Labs, Other Data: CBC, BMP 01/07/19 07:12 01/07/19 07:12 INR, PTT INR 0.98 (0.83-1.09) 01/06/19 16:24 Troponin, BNP 01/06/19 01/06/19 16:24 20:48 Troponin I 0.02 0.02 B-Natriuretic Peptide 71.4 62.3 Troponin, BNP 01/06/19 01/06/19 16:24 20:48 Troponin I 0.02 0.02 B-Natriuretic Peptide 71.4 62.3 NSR QIII, T III Echo: Report Reviewed Problem List - Problems (1) Pulmonary emboli Code(s): I26.99 - OTHER PULMONARY EMBOLISM WITHOUT ACUTE COR PULMONALE (2) Dyspnea on exertion Code(s): R06.09 - OTHER FORMS OF DYSPNEA Assessment/Plan 63 year old male with HTN, HLD, and prostate CA, presented to the ED from his PCP's office for management of new dyspnea and abnormal ECG. A CT chest is positive for multilobar PE with bilateral upper and lower lobe PE and distal RT main Pulm Art PE. Echocardiogram is technically limited. LV and RV function and size are reportedly normal. Large burden of thrombus without hypoxia, Myocardial injury but with signs of Rt heart stain on CT-Echo was technically limited but suggests normal RV function. No significant Pulm HTN was reported. Unprovoked PE. Eliquis 10mg BID x 7 days followed by 5mg bid Or Xarelto 15mg BID x 21 days followed by 20mg qd with food. DC UFH when starting NOAC. Contact pharmacy to ensure adequate coverage for NOAC. Obtain lower extremity duplex. Hematology and pulmonary consultation. Would consider long-term anticoagulation for large unprovoked PE. Age appropriate cancer screening Given ho prostate cancer, check PSA Will see as needed.
--- NOTE | 2019-01-07 11:43 | EKG ---
Test Reason : Blood Pressure : / mmHG Vent. Rate : 070 BPM Atrial Rate : 070 BPM P-R Int : 164 ms QRS Dur : 090 ms QT Int : 406 ms P-R-T Axes : 055 024 055 degrees QTc Int : 438 ms SINUS RHYTHM WITH OCCASIONAL PREMATURE VENTRICULAR COMPLEXES POSSIBLE LEFT ATRIAL ENLARGEMENT NO PREVIOUS ECGS AVAILABLE Confirmed by RG YOUSSEF MD ([id number]) on 01/07/2019 11:43:22 AM Referred By: Confirmed By:RG YOUSSEF MD
--- NOTE | 2019-01-07 12:56 | PN ---
Progress Note, Physician Chief Complaint: patient seen and examined came in with weakness and JACOBSON had CTA found to have PE started on lovenox - Current Medication List Current Medications: Active Medications Albuterol/Ipratropium (Duoneb -) 1 amp NEB Q6H PRN PRN Reason: SHORTNESS OF BREATH Amlodipine Besylate (Norvasc -) 5 mg PO DAILY [facility] Last Admin: 01/07/19 09:38 Dose: 5 mg Aspirin (Asa -) 81 mg PO DAILY [facility] Last Admin: 01/07/19 09:38 Dose: 81 mg Enoxaparin Sodium 30 mg/ (Enoxaparin Sodium 80 mg) 110 mg SQ BID [facility] Last Admin: 01/07/19 09:38 Dose: 110 mg Losartan Potassium (Cozaar -) 50 mg PO DAILY [facility] Last Admin: 01/07/19 09:38 Dose: 50 mg Rosuvastatin Calcium (Crestor -) 5 mg PO HS [facility] Last Admin: 01/06/19 22:28 Dose: 5 mg - Objective Vital Signs: Vital Signs Temperature 97.8 F 01/07/19 07:45 Pulse Rate 62 01/07/19 07:45 Respiratory Rate 18 01/07/19 07:45 Blood Pressure 132/91 01/07/19 07:45 O2 Sat by Pulse Oximetry (%) 98 01/07/19 07:45 Constitutional: Yes: Calm Cardiovascular: Yes: Regular Rate and Rhythm, S1, S2 Respiratory: Yes: CTA Bilaterally Gastrointestinal: Yes: Normal Bowel Sounds, Soft Edema: No Neurological: Yes: Alert, Oriented Labs: CBC, BMP 01/07/19 07:12 01/07/19 07:12 INR, PTT INR 0.98 (0.83-1.09) 01/06/19 16:24 Problem List - Problems (1) Dyspnea on exertion Assessment/Plan: NEw PE lovenox will need oral AC cardiology consult Code(s): R06.09 - OTHER FORMS OF DYSPNEA (2) HLD (hyperlipidemia) Assessment/Plan: crestor dose increased to 10mg HS Code(s): E78.5 - HYPERLIPIDEMIA, UNSPECIFIED (3) HTN (hypertension) Assessment/Plan: blood pressure controlled on norvasc and losartan Code(s): I10 - ESSENTIAL (PRIMARY) HYPERTENSION
[2019-01-07] MEDS ORDERED: ACETAMINOPHEN 325 MG TABLET (FP) PO ONE (20:52)
[2019-01-07] MEDS: ROSUVASTATIN CA 5 MG TABLET (FP) PO SCH (21:50)
[2019-01-08] MEDS ORDERED: ENOXAPARIN NA (PORCINE) 30 MG/0.3 ML DISP.SYRIN SQ ONE ×2 (09:19→21:03)
[2019-01-08] MEDS ORDERED: ENOXAPARIN NA (PORCINE) 80 MG/0.8 ML DISP.SYRIN SQ ONE ×2 (09:19→21:03)
[2019-01-08] MEDS: LOSARTAN POTASSIUM 50 MG TABLET (FP) PO SCH (10:13)
[2019-01-08] MEDS: amLODIPine BESYLATE 5 MG TABLET (FP) PO SCH (10:13)
[2019-01-08] MEDS: ENOXAPARIN 30 MG, ENOXAPARIN 80 MG SQ SCH ×2 (10:13→21:27)
[2019-01-08] MEDS: ASPIRIN 81 MG CHEWABLE TABLETS PO SCH (10:13)
--- NOTE | 2019-01-08 10:43 | PN ---
Progress Note, Physician History of Present Illness: feels better intermittent mild chest pain - Current Medication List Current Medications: Active Medications Albuterol/Ipratropium (Duoneb -) 1 amp NEB Q6H PRN PRN Reason: SHORTNESS OF BREATH Amlodipine Besylate (Norvasc -) 5 mg PO DAILY [facility] Last Admin: 01/08/19 10:13 Dose: 5 mg Aspirin (Asa -) 81 mg PO DAILY [facility] Last Admin: 01/08/19 10:13 Dose: 81 mg Enoxaparin Sodium 30 mg/ (Enoxaparin Sodium 80 mg) 110 mg SQ BID [facility] Last Admin: 01/08/19 10:13 Dose: 110 mg Losartan Potassium (Cozaar -) 50 mg PO DAILY [facility] Last Admin: 01/08/19 10:13 Dose: 50 mg Rosuvastatin Calcium (Crestor -) 10 mg PO HS [facility] Last Admin: 01/07/19 21:50 Dose: 10 mg - Objective Vital Signs: Vital Signs Temperature 98.4 F 01/08/19 10:00 Pulse Rate 75 01/08/19 10:00 Respiratory Rate 18 01/08/19 10:00 Blood Pressure 136/86 01/08/19 10:00 O2 Sat by Pulse Oximetry (%) 99 01/08/19 08:36 Cardiovascular: Yes: Regular Rate and Rhythm Respiratory: Yes: Regular, CTA Bilaterally Gastrointestinal: Yes: Normal Bowel Sounds, Soft. No: Tenderness Labs: CBC, BMP 01/07/19 07:12 01/07/19 07:12 INR, PTT INR 0.98 (0.83-1.09) 01/06/19 16:24 Problem List - Problems (1) Pulmonary emboli Assessment/Plan: -HAD MINOR SURGICAL PROCEDURES OFF ASA BUT NO PROLONGED BED REST,NO TRAVEL,VERY ACTIVE -R/O UNDERLYING MALIGNANCY VS COUAGULOPATHY -NEW PE -LOVENOX -PULM AND HEM CONSULT Code(s): I26.99 - OTHER PULMONARY EMBOLISM WITHOUT ACUTE COR PULMONALE (2) Chest pain Assessment/Plan: ABOVE CE AND EKG Code(s): R07.9 - CHEST PAIN, UNSPECIFIED (3) HLD (hyperlipidemia) Assessment/Plan: ON CRESTOR Code(s): E78.5 - HYPERLIPIDEMIA, UNSPECIFIED (4) HTN (hypertension) Assessment/Plan: MONITOR Code(s): I10 - ESSENTIAL (PRIMARY) HYPERTENSION
--- NOTE | 2019-01-08 11:34 | EKG ---
Test Reason : Blood Pressure : / mmHG Vent. Rate : 079 BPM Atrial Rate : 079 BPM P-R Int : 146 ms QRS Dur : 088 ms QT Int : 414 ms P-R-T Axes : 065 037 062 degrees QTc Int : 474 ms SINUS RHYTHM WITH PREMATURE ATRIAL COMPLEXES POSSIBLE LEFT ATRIAL ENLARGEMENT LEFT VENTRICULAR HYPERTROPHY ABNORMAL ECG NO PREVIOUS ECGS AVAILABLE Confirmed by GAVINO WEI MD ([id number]) on 01/08/2019 11:33:40 AM Referred By: Confirmed By:GAVINO WEI MD
[2019-01-08 12:21] LABS: ALBUMIN 3.3 g/dl (3.4-5.0); ALK PHOS 94 U/L (45-117); ANION GAP 5 MMOL/L (8-16); BILIRUBIN,TOTAL 0.8 mg/dL (0.2-1); BLOOD UREA NITROGEN 13.8 mg/dL (7-18); CALCIUM 8.6 mg/dL (8.5-10.1); CHLORIDE 106 mmol/L (98-107); CO2 28 mmol/L (21-32); GLUCOSE,RANDOM 83 mg/dL (74-106); POTASSIUM 3.6 mmol/L (3.5-5.1); SGOT/AST 15 U/L (15-37); SGPT/ALT 23 U/L (13-61); SODIUM 139 mmol/L (136-145); TOT PROT 7.1 g/dl (6.4-8.2)
[2019-01-08 12:23] LABS: BASO % 0.7 % (0-2.0); EOS % 0.8 % (0-4.5); HEMATOCRIT 46.1 % (35.4-49); HEMOGLOBIN 15.6 GM/dL (11.7-16.9); LYMPH % 19.9 % (8-40); MCHC 33.9 g/dl (32.0-35.9); MEAN CELL VOLUME 94.3 fl (80-96); MEAN PLT VOLUME 8.9 fl (7.5-11.1); NEUT % 66.6 % (42.8-82.8); PLATELET COUNT 186 K/MM3 (134-434); RBC 4.89 M/mm3 (4.00-5.60); RDW 12.8 % (11.9-15.9); WHITE BLOOD COUNT 5.1 K/mm3 (4.0-10.0)
--- NOTE | 2019-01-08 13:47 | CON.PULM ---
Consult Consult Specialty:: PULMONARY Referred by:: Dr Carrington Reason for Consultation:: PE - History of Present Illness Chief Complaint: shortness of breath History of Present Illness: 63yo male with h/o HTN, hyperlipidemia, prostate ca who was admitted with worsening shortness of breath x 1 week. Does report some left sided pleuritic chest pain. No cough or wheezing. No fevers, chills or sweats. CTA chest showing bilateral pulmonary emboli. He denies any prior personal or family history of VTE. He smokes about 1 cigarette/3 months. He is not sedentary, no prolonged immobilizations. No leg trauma. He is up to date on his colonoscopy. Last treatment for his prostate ca was 2 years ago. - History Source History Provided By: Patient, Medical Record Limitations to Obtaining History: No Limitations - Past Medical History Cardio/Vascular: Yes: HTN, Hyperlipdemia - Alcohol/Substance Use Hx Alcohol Use: No - Smoking History Smoking history: Never smoked Have you smoked in the past 12 months: No If you are a former smoker, when did you quit?: 2011 Home Medications - Allergies Allergies/Adverse Reactions: Allergies Allergy/AdvReac Type Severity Reaction Status Date / Time No Known Drug Allergies Allergy Verified 01/06/19 16:12 peanut Allergy "rash" Verified 01/06/19 16:12 shrimp Allergy "rash" Verified 01/06/19 16:12 - Home Medications Home Medications: Ambulatory Orders Amlodipine Besylate [Norvasc -] 5 mg PO DAILY 08/05/18 Rosuvastatin Calcium [Crestor] 5 mg PO HS 08/05/18 Aspirin [Children's Aspirin] 81 mg PO DAILY 01/06/19 Ketoconazole 2% Cream [Nizoral 2% Cream -] 1 applic TP DAILY 01/06/19 Losartan Potassium [Cozaar -] 50 mg PO DAILY 01/06/19 Review of Systems - Review of Systems Constitutional: denies: Chills, Fever, Weakness Eyes: denies: Recent Change in Vision HENT: denies: Nasal Congestion, Throat Pain Neck: denies: Stiffness, Tenderness Cardiovascular: reports: Chest Pain, Shortness of Breath. denies: Edema, Palpitations Respiratory: denies: Cough, Wheezing Gastrointestinal: denies: Abdominal Pain, Nausea, Vomiting Genitourinary: denies: Dysuria, Hematuria Neurological: denies: Dizziness, Headache Endocrine: denies: Unexplained Weight Loss Physical Exam Vital Sings: Vital Signs Temperature 98.4 F 01/08/19 10:00 Pulse Rate 75 01/08/19 10:00 Respiratory Rate 18 01/08/19 10:00 Blood Pressure 136/86 01/08/19 10:00 O2 Sat by Pulse Oximetry (%) 99 01/08/19 08:36 Constitutional: Yes: Calm Eyes: Yes: Conjunctiva Clear, EOM Intact HENT: Yes: Atraumatic, Normocephalic Neck: Yes: Supple, Trachea Midline Cardiovascular: Yes: Regular Rate and Rhythm Respiratory: Yes: Diminished (decreased at the bases) ...Clubbing: No Gastrointestinal: Yes: Normal Bowel Sounds, Soft. No: Tenderness Edema: No Neurological: Yes: Alert, Oriented Labs: CBC, BMP 01/08/19 11:40 01/08/19 11:40 Imaging - Results Chest X-ray: Report Reviewed, Image Reviewed (bilateral PE) Problem List - Problems (1) Pulmonary emboli Code(s): I26.99 - OTHER PULMONARY EMBOLISM WITHOUT ACUTE COR PULMONALE Assessment/Plan Acute Bilateral Pulmonary Emboli HTN Hyperlipidemia Prostate Ca - echocardiogram without evidence of right heart strain - can start DOAC i.e. Eliquis 10mg BID x 7 days then 5mg BID - LE dopplers to assess if clot burden remains - O2 to keep SpO2>90% Thank you for this consult Narendra Regalado MD
--- NOTE | 2019-01-08 17:27 | CONSULT ---
Consult Consult Specialty:: Hematology Reason for Consultation:: Bilateral PE - History of Present Illness Chief Complaint: SOB History of Present Illness: 63 y/o gentleman with h/o HTN, hyperlipidemia, prostate ca who was admitted with worsening shortness of breath x 1 week and left sided pleuritic chest pain. No cough or wheezing. No fevers, chills or sweats. CTA chest showing bilateral pulmonary emboli. He denies any prior personal or family history of VTE. He smokes about 1 cigarette/3 months. He is not sedentary, no prolonged immobilizations. No leg trauma. He is up to date on his colonoscopy. Last treatment for his prostate ca was 2 years ago ([facility]) - History Source History Provided By: Patient Limitations to Obtaining History: No Limitations - Past Medical History Cardio/Vascular: Yes: HTN, Hyperlipdemia Renal/: Yes: Cancer (Prostate Cancer) Heme/Onc: Yes: Cancer - Alcohol/Substance Use Hx Alcohol Use: No (Social Use) History of Substance Use: reports: None - Smoking History Smoking history: Current some day smoker Have you smoked in the past 12 months: No If you are a former smoker, when did you quit?: 2012 Home Medications - Allergies Allergies/Adverse Reactions: Allergies Allergy/AdvReac Type Severity Reaction Status Date / Time No Known Drug Allergies Allergy Verified 01/06/19 16:12 peanut Allergy "rash" Verified 01/06/19 16:12 shrimp Allergy "rash" Verified 01/06/19 16:12 - Home Medications Home Medications: Ambulatory Orders Amlodipine Besylate [Norvasc -] 5 mg PO DAILY 08/05/18 Rosuvastatin Calcium [Crestor] 5 mg PO HS 08/05/18 Aspirin [Children's Aspirin] 81 mg PO DAILY 01/06/19 Ketoconazole 2% Cream [Nizoral 2% Cream -] 1 applic TP DAILY 01/06/19 Losartan Potassium [Cozaar -] 50 mg PO DAILY 01/06/19 Review of Systems - Review of Systems Respiratory: reports: SOB on Exertion (Mentioned SOB on exertion) Gastrointestinal: reports: No Symptoms Genitourinary: reports: No Symptoms Breasts: reports: No Symptoms Reported Musculoskeletal: reports: No Symptoms Integumentary: reports: No Symptoms Neurological: reports: No Symptoms Endocrine: reports: No Symptoms Hematology/Lymphatic: reports: No Symptoms Psychiatric: reports: No Symptoms Physical Exam Vital Signs: Vital Signs Temperature 98.1 F 01/08/19 14:00 Pulse Rate 91 H 01/08/19 14:00 Respiratory Rate 18 01/08/19 10:00 Blood Pressure 125/68 01/08/19 14:00 O2 Sat by Pulse Oximetry (%) 99 01/08/19 08:36 Constitutional: Yes: Well Nourished, No Distress, Calm Eyes: Yes: WNL, Conjunctiva Clear, EOM Intact HENT: Yes: WNL, Atraumatic, Normocephalic Neck: Yes: WNL, Supple, Trachea Midline Cardiovascular: Yes: WNL, Regular Rate and Rhythm Respiratory: Yes: WNL, Regular, CTA Bilaterally Gastrointestinal: Yes: WNL, Normal Bowel Sounds, Soft ...Rectal Exam: Yes: WNL, Deferred Extremities: Yes: WNL Labs: CBC, BMP 01/08/19 11:40 01/08/19 11:40 Assessment/Plan 63 y/o gentleman with PMH HTN, Hyperlipidemia, Prostate CA admitted with worsening SOB and pleuritic chest pain. Recommend: 1) Agree with Apixaban 10 mg BID x 7 days and 5 mg BID afterwards 2) Age appropriate cancer screening (PCP and his own oncologist) 3) Follow-up with primary oncologist upon discharge 4) Thank you for this consultation
[2019-01-08] MEDS: ROSUVASTATIN CA 5 MG TABLET (FP) PO SCH (21:25)
[2019-01-09 06:41] VITALS: TEMP 98.7
[2019-01-09] MEDS ORDERED: ENOXAPARIN NA (PORCINE) 30 MG/0.3 ML DISP.SYRIN SQ ONE (07:42)
[2019-01-09] MEDS ORDERED: ENOXAPARIN NA (PORCINE) 80 MG/0.8 ML DISP.SYRIN SQ ONE (07:42)
[2019-01-09 08:01] VITALS: BP 132/74; PULSE 69
[2019-01-09] MEDS: ENOXAPARIN 30 MG, ENOXAPARIN 80 MG SQ SCH (09:08)
[2019-01-09] MEDS: amLODIPine BESYLATE 5 MG TABLET (FP) PO SCH (09:08)
[2019-01-09] MEDS: LOSARTAN POTASSIUM 50 MG TABLET (FP) PO SCH (09:08)
[2019-01-09] MEDS: ASPIRIN 81 MG CHEWABLE TABLETS PO SCH (09:08)
--- NOTE | 2019-01-09 09:39 | EKG ---
Test Reason : Blood Pressure : / mmHG Vent. Rate : 075 BPM Atrial Rate : 067 BPM P-R Int : 152 ms QRS Dur : 090 ms QT Int : 414 ms P-R-T Axes : 054 018 051 degrees QTc Int : 462 ms SINUS RHYTHM WITH MARKED SINUS ARRHYTHMIA WITH OCCASIONAL PREMATURE VENTRICULAR COMPLEXES MINIMAL VOLTAGE CRITERIA FOR LVH, MAY BE NORMAL VARIANT BORDERLINE ECG WHEN COMPARED WITH ECG OF 06-JAN-2019 22:27, NO SIGNIFICANT CHANGE WAS FOUND Confirmed by GAVINO WEI MD ([id number]) on 01/09/2019 9:38:40 AM Referred By: Mahamed MEADOWS Confirmed By:GAVINO WEI MD
--- NOTE | 2019-01-09 10:49 | DS ---
Physical Examination Vital Signs: Vital Signs Temperature 98.7 F 01/09/19 07:58 Pulse Rate 69 01/09/19 07:58 Respiratory Rate 18 01/09/19 08:01 Blood Pressure 132/74 01/09/19 07:58 O2 Sat by Pulse Oximetry (%) 97 01/09/19 08:01 Cardiovascular: Yes: Regular Rate and Rhythm Respiratory: Yes: Regular, CTA Bilaterally Gastrointestinal: Yes: Normal Bowel Sounds, Soft. No: Tenderness Labs: CBC, BMP 01/08/19 11:40 01/08/19 11:40 Discharge Summary Reason For Visit: DYSPNEA ON EXERTION,ABNORMAL ELECTROCARDIOGRAPHY Current Active Problems Chest pain (Acute) Dyspnea on exertion (Acute) HLD (hyperlipidemia) (Acute) HTN (hypertension) (Acute) Pulmonary emboli (Acute) Hospital Course: - Problems (1) Pulmonary emboli Assessment/Plan: -HAD MINOR SURGICAL PROCEDURES OFF ASA BUT NO PROLONGED BED REST,NO TRAVEL,VERY ACTIVE -R/O UNDERLYING MALIGNANCY VS COUAGULOPATHY -NEW PE -LOVENOX TO ELIQUIS 10 BID X 7 DAYS THEN 5MG BID -PT UNDERSTANDS IMPORTANCE OF AC AND THE NEED FOR OUTPATIENT WORK UP FOR HYPER COAGULABLE CAUSES -PULM AND HEM CONSULT APPRECIATED Code(s): I26.99 - OTHER PULMONARY EMBOLISM WITHOUT ACUTE COR PULMONALE (2) Chest pain Assessment/Plan: ABOVE CE AND EKG NL RESOLVED Code(s): R07.9 - CHEST PAIN, UNSPECIFIED (3) HLD (hyperlipidemia) Assessment/Plan: ON CRESTOR Code(s): E78.5 - HYPERLIPIDEMIA, UNSPECIFIED (4) HTN (hypertension) Assessment/Plan: MONITOR Code(s): I10 - ESSENTIAL (PRIMARY) HYPERTENSION Condition: Stable - Instructions Diet, Activity, Other Instructions: take eliquis 2 pills (10 mg) twice a day for 7 days then 5 mg twice a day see your doctor within one week see your oncologist Referrals: Yves Carrington MD [Primary Care Provider] - 1 Week Disposition: HOME - Home Medications Comprehensive Discharge Medication List: Ambulatory Orders Amlodipine Besylate [Norvasc -] 5 mg PO DAILY 08/05/18 Aspirin [Children's Aspirin] 81 mg PO DAILY 01/06/19 Ketoconazole 2% Cream [Nizoral 2% Cream -] 1 applic TP DAILY 01/06/19 Losartan Potassium [Cozaar -] 50 mg PO DAILY 01/06/19 Apixaban [Eliquis -] 10 mg PO BID #74 tablet 01/09/19 Rosuvastatin [Crestor -] 10 mg PO HS tablet 01/09/19
--- NOTE | 2019-01-09 12:35 | PN ---
Progress Note (short form) - Note Progress Note: PULMONARY States breathing, chest pain better today. Vital Signs Period Temp Pulse Resp BP Sys/Pepe Pulse Ox Last 24 Hr 98.1 F-98.7 F 66-96 18-18 125-141/68-94 97-97 Gen: NAD at rest Heart: RRR Lung: decreased breath sounds at the bases Abd: soft, nontender Ext: no edema CBC, BMP 01/08/19 11:40 01/08/19 11:40 Active Medications Albuterol/Ipratropium (Duoneb -) 1 amp NEB Q6H PRN PRN Reason: SHORTNESS OF BREATH Amlodipine Besylate (Norvasc -) 5 mg PO DAILY [facility] Last Admin: 01/09/19 09:08 Dose: 5 mg Apixaban (Eliquis -) 10 mg PO BID [facility] Aspirin (Asa -) 81 mg PO DAILY [facility] Last Admin: 01/09/19 09:08 Dose: 81 mg Losartan Potassium (Cozaar -) 50 mg PO DAILY [facility] Last Admin: 01/09/19 09:08 Dose: 50 mg Rosuvastatin Calcium (Crestor -) 10 mg PO HS [facility] Last Admin: 01/08/19 21:25 Dose: 10 mg A/P Acute Bilateral Pulmonary Emboli RLE DVT HTN Hyperlipidemia Prostate Ca - Eliquis 10mg BID x 7 days then 5mg BID - will need anticoagulation for at least 6 months - O2 to keep SpO2>90% Problem List - Problems (1) Pulmonary emboli Code(s): I26.99 - OTHER PULMONARY EMBOLISM WITHOUT ACUTE COR PULMONALE
[2019-01-09] MEDS ORDERED: APIXABAN 5 MG TABLET PO SCH (22:00)
== END 2019-01-09 12:58 | disposition home or self-care (01) | DRG 299 ==
LOC: JER 16:04 → JERBED 19:56 → J4W 22:50 → OBSVTOIN 01-07 12:55
PROVIDERS: ADMIT Internal Medicine; ATTEND Family Medicine
DX: I82.431 Acute embolism and thrombosis of right popliteal vein (principal); I26.99 Other pulmonary embolism without acute cor pulmonale; I10 Essential (primary) hypertension; E78.00 Pure hypercholesterolemia, unspecified; J44.9 Chronic obstructive pulmonary disease, unspecified; E66.9 Obesity, unspecified; Z68.34 Body mass index [BMI] 34.0-34.9, adult; R06.09 Other forms of dyspnea; R07.9 Chest pain, unspecified; Z85.46 Personal history of malignant neoplasm of prostate
CPT/HCPCS: 36415; 71046-TC-FY; 71275-TC; 80048; 80053; 80061; 82550; 83036; 83721; 83735; 83880; 84100; 84443; 84484; 85025; 85610; 93005; 93010; 93306-TC; 93970-TC; 99284-25; G0378